=== PATIENT | male | born 1990 | race African-American/Black ===

== ENCOUNTER 2021-05-16 16:04 | Emergency (ER) | payer MEDICAID ==
[~2021-05-16] VITALS: Ht 175.3 cm; Wt 73.5 kg
--- NOTE | 2021-05-16 16:16 | NUR ---
BIBS FOR VOL ADMISSION TO [facility] WITH PALN TO JUMP OF A BUILDING. DENIES HI. DENIES VISUAL OR AUDITORY HALLUCINATIONS. ALSO, C/O RENU FOOT PAIN 01/28. DOES NOT WANT PAIN MED AT THIS TIME. RESPIRATION REGULAR AND UNLABORED. WILL CONTINUE TO MONITOR THE PATIENT.
--- NOTE | 2021-05-16 16:30 | NUR ---
URINE COLLECTED, COVID ANTIGEN DONE AND BOTH SPECIMENS SENT TO THE LAB.
[2021-05-16 16:58] LABS: BASOPHILS % (AUTO) 1.2 % (0.0-2.0); EOSINOPHILS % (AUTO) 3.1 % (0.0-6.0); HEMATOCRIT 47 % (39-51); MEAN CORPUSCULAR HGB CONC 32 g/dl (31.0-36.0); MEAN CORPUSCULAR VOLUME 88 fL (80-96); MONOCYTES # (AUTO) 0.3 K/uL (0.1-1.30); MONOCYTES % (AUTO) 8.2 % (2.0-12.0); NEUTROPHILS # (AUTO) 1.6 K/uL (1.8-8.9); NEUTROPHILS % (AUTO) 38.5 % (43.0-81.0); PLATELET COUNT (AUTO) 291 K/uL (150-450); WHITE BLOOD COUNT (AUTO) 4.1 K/uL (4.3-11.0)
[2021-05-16] MEDS ORDERED: KETOROLAC TROMETHAMINE INJ 30 MG/ML VIAL IM ONE (17:00)
[2021-05-16 17:03] LABS: BILIRUBIN,URINE NEGATIVE (NEGATIVE); COLOR,URINE YELLOW (YELLOW); LEUKOCYTE ESTERASE ,URINE NEGATIVE (NEGATIVE); NITRITE, URINE NEGATIVE (NEGATIVE); PROTEIN,URINE 100 mg/dl (NEGATIVE); UGLUCOSE NEGATIVE (NEGATIVE); UROBILINOGEN,URINE 0.2 EU/dL (0.2)
[2021-05-16 17:07] LABS: CALCIUM, SERUM 9.2 mg/dL (8.5-10.1); CARBON DIOXIDE 26 mmol/L (21-32); CHLORIDE 106 mmol/L (98-107); CREATININE 1.3 mg/dL (0.6-1.3); GLUCOSE 86 mg/dL (74-106); POTASSIUM 3.7 mmol/L (3.5-5.1); SODIUM SERUM 141 mmol/L (136-145); UREA NITROGEN, BLOOD 13 mg/dL (7-18)
[2021-05-16 17:11] LABS: ALANINE AMINOTRANSFERASE 31 U/L (12-78); ALBUMIN 3.7 g/dL (3.4-5.0); ALKALINE PHOSPHATASE 67 U/L (46-116); ASPARTATE AMINOTRANSFERASE 26 U/L (15-37); BILIRUBIN,DIRECT 0.2 mg/dL (0.0-0.2); BILIRUBIN,TOTAL 0.5 mg/dL (0.2-1.0); TOTAL PROTEIN, SERUM 8.1 g/dL (6.4-8.2)
[2021-05-16 17:14] LABS: RBC,URINE 0-2 /HPF (0-2)
[2021-05-16 17:15] LABS: BACTERIA,URINE FEW /HPF (None Seen); MUCUS,URINE Moderate /LPF (None Seen); SQUAMOUS EPITHELIAL CELL,UR FEW /HPF (None Seen); WBC,URINE 0-2 /HPF (0-3)
[2021-05-16 17:17] LABS: ACETAMINOPHEN < 2 ug/ml (10-30); ALCOHOL, BLOOD < 3 mg/dL (0-0)
[2021-05-16] MEDS ORDERED: KETOROLAC TROMETHAMINE INJ 30 MG/ML VIAL ONE (17:36)
--- NOTE | 2021-05-17 02:21 | NUR ---
CLINICALS FAXED TO [facility]
[2021-05-17 03:19] VITALS: BP 153/89
--- NOTE | 2021-05-17 11:56 | NUR ---
SW called out pt.'s name in waiting room to interview. No response. SW will be available to complete assessment if present.
--- NOTE | 2021-05-17 12:24 | NUR ---
Multiple Calls No response- [facility]
--- NOTE | 2021-05-17 14:29 | NUR ---
FAXED CLINICALS TO [facility]
== END 2021-05-17 12:25 | disposition left against medical advice (07) ==
LOC: ER 16:31
DX: R45.851 Suicidal ideations (principal); Z59.02 Unsheltered homelessness; F20.9 Schizophrenia, unspecified; J44.9 Chronic obstructive pulmonary disease, unspecified; Z91.52 Personal history of nonsuicidal self-harm; F32.A Depression, unspecified; Z20.822 Contact with and (suspected) exposure to COVID-19; Z53.20 Procedure and treatment not carried out because of patient's decision for unspecified reasons
CPT/HCPCS: 36415; 80048; 80076; 80143; 80307; 80320; 81001; 85025; 87426; 96372; 99285; C9803; J1885; G0480